=== PATIENT | female | born 1935 | race Caucasian/White ===

== ENCOUNTER 2016-09-19 10:01 | Day surgery (SDC) | payer MEDICARE, OTHER ==
[~2016-09-19] VITALS: Ht 152.4 cm; Wt 61.0 kg
[~2016-09-19 10:01] MED LIST: SYNT25TA PO
[2016-09-19 10:28] VITALS: BP 196/85; PULSE 72; RESP 20; TEMP 97.7; O2SAT 97
[2016-09-19] MEDS ORDERED: AMIT10TA6 PO (10:44)
[2016-09-19] MEDS ORDERED: METF500T PO (10:44)
[2016-09-19] MEDS ORDERED: LEVO75TA3 PO (10:44)
[2016-09-19] MEDS ORDERED: MISCCAP32 PO (10:44)
[2016-09-19] MEDS ORDERED: VITAPAK (10:44)
[2016-09-19] MEDS ORDERED: FAMO20TA2 PO (10:44)
[2016-09-19] MEDS ORDERED: BETH25TA2 PO (10:44)
[2016-09-19] MEDS ORDERED: LIDOCAINE 1%/EPINEPHrine 1:100,000 SOLN 20 ML VIAL ONE (11:54)
[2016-09-19] MEDS ORDERED: fentaNYL CITRATE 250 MCG/5 ML AMP ONE (12:11)
[2016-09-19] MEDS ORDERED: MIDAZOLAM HCL 5 MG/5 ML VIAL ONE (12:11)
--- NOTE | 2016-09-19 12:44 | PD.RAD ---
Post CT Procedure Prog Note Pre Procedure Diagnosis: (1) Hepatitis Post Procedure Diagnosis: (1) Hepatitis Procedure Date: Sep 19, 2016 Supervising Radiologist: Michele Smyth Proceduralist/Assist: RT Wili(R)(CT) Anesthesia: Conscious Sedation Plan of Activity Patient to Unit: ROPU Patient Condition: Good See PACS Report for procedural detail/treatment Biopsy Imaging Guidance: CT Biopsy Procedure: Liver Specimen: Core Biopsy Michele Smyth MD Sep 19, 2016 12:44
[2016-09-19 12:55] VITALS: BP 157/57; PULSE 92; RESP 16; TEMP 98.5; O2SAT 93
[2016-09-19 13:15] VITALS: BP 161/57; PULSE 92; RESP 16; O2SAT 93
[2016-09-19 13:30] VITALS: BP 164/54; PULSE 87; RESP 16; O2SAT 93
[2016-09-19 14:00] VITALS: BP 142/59; PULSE 88; RESP 16; O2SAT 96
--- NOTE | 2016-09-19 14:02 | RADRPT ---
EXAM DATE/TIME: 09/19/2016 12:30 [place] COMPARISON: No previous studies available for comparison. INDICATIONS : Chronic hep c SEDATION TIME: 30 minutes BIOPSY SITE: Right Liver MEDICATION(S): 1.) 1 mg midazolam (Versed) IV 2.) 50 mcg fentanyl (Sublimaze) IV DEVICE(S): 1.) 18 gauge BioPince needle MEDICAL HISTORY : Gastroparesis. Hepatitis C. SURGICAL HISTORY : None. ENCOUNTER: Initial ACUITY: 1 day PAIN SCORE: 10/10 LOCATION: liver A total of two core specimen(s) were obtained and sent to the laboratory for pathologic evaluation. PROCEDURE: 1. CT guided liver biopsy. 2. Conscious sedation with continuous EKG and oximetry monitoring. Prior to the procedure informed consent was obtained. Any appropriate prior imaging studies were rev iewed. Using automated exposure control and adjustment of the mA and/or kV according to patient size, radiat ion dose was kept as low as reasonably achievable to obtain optimal diagnostic quality images. The site was prepped in a sterile fashion. Full sterile technique was used, including cap, mask, vaughn rile gloves and gown and a large sterile sheet. Hand hygiene and 2% chlorhexidine and/or betadine/al cohol prep was utilized per protocol for cutaneous antisepsis. The skin and subcutaneous tissues wer e infiltrated with local anesthetic solution. With CT guidance the previously identified target was localized. Biopsy was performed using the presc ribed needle as above. Adequate hemostasis was obtained with compression at the puncture site. Follow-up CT scan reveals no hemorrhage. The patient tolerated the procedure well and there were no complications. The patient was returned to the Radiology Outpatient Unit in stable condition. CONCLUSION: Uncomplicated CT guided biopsy. Michele Smyth MD on September 19, 2016 at 13:48 Board Certified Radiologist. This report was verified electronically.
== END 2016-09-19 16:20 | disposition home or self-care (01) ==
LOC: HRAD 10:01 → HRIP 10:02 → HRAD 16:20
PROVIDERS: ATTEND Internal Medicine Gastroenterology
DX: B18.2 Chronic viral hepatitis C (principal); K31.84 Gastroparesis
CPT/HCPCS: 47000; 77012; 88307; 88313; J2250; J3010